=== PATIENT | male | born 1945 | race Caucasian/White ===

== ENCOUNTER 2016-09-06 22:03 | Inpatient (IN) | payer OTHER ==
[~2016-09-06] VITALS: Ht 190.5 cm; Wt 94.8 kg
[2016-09-06 22:03] VITALS: BP 202/123; PULSE 117; RESP 20; TEMP 98.1; O2SAT 95
[~2016-09-06 22:03] MED LIST: ALBU8.5H8 INH; ASA81 PO; GLU500 PO; INSU100V11 SQ; LEVO500T20 PO; LISI-600 PO; LOVI60 SQ; METO25TA6 PO; MULT PO; OMEP20TA20 PO; SIMV40TA2 PO; VITD2000 PO
--- NOTE | 2016-09-06 22:03 | NUR ---
Patient to ER bed 4 to gown for evaluation. Side rails up. Report given to Eladio LEWIS.
--- NOTE | 2016-09-06 22:10 | NUR ---
Pt brought to ED by with c/o chest tightness and SOB x2 hours, stated she discovered pt turning iverson and have increased work of breathing. Pt appeared calm at the ED and tachynpic. Pt A&Ox4, denies N/V/D, no sign of injury. Pt stated he does not have real chest pain, just a tightness sensation in chest that causes SOB. WIll continue to monitor
[2016-09-06] MEDS ORDERED: ASPIRIN 325 MG TABLET PO ONE (22:15)
[2016-09-06] MEDS ORDERED: LABETALOL 100 MG/ 20ML VIAL IVP ONE (22:15)
--- NOTE | 2016-09-06 22:20 | NUR ---
MD Xiao at bedside examining pt
[2016-09-06 22:26] LABS: BASOPHILS % (AUTO) 0.4 % (0.0-2.0); EOSINOPHILS # (AUTO) 0.4 K/uL (0.0-0.4); EOSINOPHILS % (AUTO) 3.7 % (0.0-4.0); HEMATOCRIT 42.4 % (36-54); HEMOGLOBIN 14.4 g/dL (14.0-18.0); MEAN CORPUSCULAR HEMOGLOBIN 33 pg (27-31); MEAN CORPUSCULAR HGB CONC 34 % (32-36); MEAN CORPUSCULAR VOLUME 96 fL (79.0-98.0); MONOCYTES # (AUTO) 0.9 K/uL (0.0-1.0); MONOCYTES % (AUTO) 8.5 % (1.7-9.3); NEUTROPHILS # (AUTO) 6.1 K/uL (1.8-7.7); NEUTROPHILS % (AUTO) 58.4 % (40.0-70.0); PLATELET COUNT (AUTO) 240 K/uL (130-430); RED BLOOD CELL COUNT(AUTO) 4.42 MIL/uL (4.2-6.2); RED CELL DISTRIBUTION WIDTH 13.1 % (9.0-15.0); WHITE BLOOD COUNT (AUTO) 10.4 K/uL (4.8-10.8)
[2016-09-06 22:42] LABS: INR 0.9 (0.80-1.20); PROTHROMBIN TIME 10.3 SECS (9.5-12.5)
[2016-09-06 22:43] LABS: ANION GAP 5 (5-15); CALCIUM 9.5 mg/dL (8.4-11.0); CHLORIDE 99 mmol/L (98-107); CREATININE 1.07 mg/dL (0.55-1.30); GLUCOSE 156 mg/dL (70-99); POTASSIUM 3.1 mmol/L (3.5-5.1); SODIUM SERUM 136 mmol/L (136-145); UREA NITROGEN, BLOOD 24 mg/dL (8-21)
--- NOTE | 2016-09-06 22:46 | NUR ---
Pt stated he feels better and breathing easier now
[2016-09-06 22:48] LABS: ALANINE AMINOTRANSFERASE 33 U/L (12-78); ASPARTATE AMINOTRANSFERASE 20 U/L (10-37); TOTAL BILIRUBIN 0.5 mg/dL (0.0-1.0); TOTAL PROTEIN, SERUM 8.1 g/dL (6.4-8.3)
[2016-09-06] MEDS ORDERED: POTASSIUM CHLORIDE 20 MEQ TAB.PRT.SR PO ONE (23:00)
--- NOTE | 2016-09-06 23:09 | NUR ---
BP 135/75, HR 94, O2 95% on 2L NS
[2016-09-06] MEDS ORDERED: ENOXAPARIN SODIUM 80 MG/0.8 ML SYRINGE SUBCUT ONE (23:15)
[2016-09-06] MEDS ORDERED: INSU100V9 SUBCUT (23:34)
[2016-09-06] MEDS ORDERED: INSU10VI4 SUBCUT (23:34)
--- NOTE | 2016-09-06 23:36 | NUR ---
Medication reconciliation completed with information provided by FAMILY. Any prior medication reconciliation on file was reviewed and corrected.
[2016-09-07] MEDS ORDERED: cloNIDine HCL 0.1 MG TABLET PO PRN (00:30)
--- NOTE | 2016-09-07 00:45 | NUR ---
Patient will be admitted to care of . Admitted to telemetry unit. Will go to room 101B. Belongings list completed. Summary report printed. Report given to [place] [facility] medic to telemetry via ACLS protocol. 2 Licensed nurse present. IV present no signs or symptoms of infiltration.
--- NOTE | 2016-09-07 00:46 | NUR ---
ADMISSION NOTE Received patient from ER via [facility], received report from CONGRESSIONAL REPRESENTATIVE. Patient admitted with diagnosis of Chest Pain. Patient oriented to hospital routine, call light, toileting and safety-patient verbalized understanding.
[2016-09-07 00:50] VITALS: BP 141/80; PULSE 79; RESP 18; TEMP 97.9; O2SAT 96
[2016-09-07] MEDS ORDERED: FLU VACC QS 2016-17(36MOS+)/PF 0.5 ML/SYR SYRINGE I.M. PRN (01:15)
--- NOTE | 2016-09-07 02:46 | NUR ---
ROUNDS PT IS AWAKE ASKED FOR WATER.NO C/O PAIN AND NO SOB NOTED.CALL LIGHT WITHIN REACH,WILL CONT TO MONITOR.
--- NOTE | 2016-09-07 03:37 | NUR ---
CARDIO CONSULT: DR MUNGUIA (DR MARTINEZ O/C) Consult was called, rashad Lima
[2016-09-07 03:59] VITALS: BP 148/78; PULSE 81; RESP 18; TEMP 98; O2SAT 95
--- NOTE | 2016-09-07 04:46 | NUR ---
ROUNDS PT IS SLEEPING COMFORTABLY @ THIS TIME.NO C/O PAIN AND NO RESPI DISTRESS NOTED.CALL LIGHT WITHIN REACH,WILL CONT TO MONITOR.
--- NOTE | 2016-09-07 06:45 | NUR ---
FINAL NOTES PT IS SLEEPING @ THIS TIME.NO S/S OF PAIN AND NO DISTRESS NOTED.V/S ARE WNL.ALL NEEDS MET AND ANTICIPATED BY NOC NURSES.CALL LIGHT WITHIN REACH,WILL ENDORSE.
--- NOTE | 2016-09-07 07:50 | NUR ---
AM ROUNDS PT A/O X4, DENIES CHEST PAIN OR SOB AT THIS TIME...HL TO RAC FLUSHES WELL...PT AMBULATES WITH STEADY GAIT..AWAITING ECHOCARDIOGRAM LATER THIS MORNING.. AT BEDSIDE...WILL CONT TO MONITOR
[2016-09-07] MEDS ORDERED: LISINOPRIL 20 MG TABLET PO SCH (09:00)
[2016-09-07] MEDS ORDERED: ENOXAPARIN SODIUM 40 MG/0.4 ML SYRINGE SUBCUT SCH (09:00)
[2016-09-07] MEDS ORDERED: ASPIRIN 325 MG TABLET (ECOTRIN) PO SCH (09:00)
[2016-09-07] MEDS ORDERED: METOPROLOL TARTRATE 25 MG TABLET PO SCH ×2 (09:00→21:00)
--- NOTE | 2016-09-07 11:00 | NUR ---
ROUNDS PT STABLE..NO CHANGES..WILL CONT MONITOR
[2016-09-07] MEDS ORDERED: *LOVENOX 1MG/KG Q12H/PHARMACY XX ONE (11:30)
[2016-09-07 12:00] VITALS: BP 152/78; PULSE 77; RESP 21; TEMP 97.8; O2SAT 95
[2016-09-07] MEDS: INSULIN REGULAR, HUMAN 100 UNITS/ML, 10 ML VIAL (novoLIN R) SUBCUT PRN ×3 (12:19→21:50)
--- NOTE | 2016-09-07 14:00 | NUR ---
ROUNDS PT STABLE...NO CHANGES...WILL CONT TO ANDREA
[2016-09-07 15:20] VITALS: BP 146/80; PULSE 74; RESP 19; TEMP 99; O2SAT 96
--- NOTE | 2016-09-07 18:00 | NUR ---
TRANSFER INFORMATION [facility] FOR HCP IS MAKING ARRANGEMENTS FOR ANGIOGRAM AND TRANSFER TO [facility]. [phone]..PHONE [phone]..FAX PT TO BE TRANSFERRED VIA ACLS.. CALL REPORT TO [facility] @ [phone] AFTER 0630 (PER AUTUMN)
--- NOTE | 2016-09-07 18:15 | NUR ---
ROUNDS PT INFORMED OF TRANSFER INFORMATION...PT STABLE...WILL CONT TO MONITOR
[2016-09-07 20:00] VITALS: BP_SYST 162; BP_SYST 163; BP_DIAS 109; BP_DIAS 111; PULSE 141; RESP 20; TEMP 99; O2SAT 96
--- NOTE | 2016-09-07 20:10 | NUR ---
HR elevated Patient heart rate 141, B/P 162/109 right arm, B/P 163/111 left arm. patient denies of any chest pain, no acute distress noted. Schedule Lopressor given. will continue to monitor patient. Charge nurse made aware.
[2016-09-07] MEDS ORDERED: ATORVASTATIN 20 MG TABLET PO ONE (21:00)
[2016-09-07] MEDS ORDERED: ENOXAPARIN SODIUM 100 MG/ML SYRINGE SUBCUT SCH (21:00)
[2016-09-07] MEDS ORDERED: SIMVASTATIN 40 MG TABLET PO SCH (21:00)
[2016-09-07 21:45] VITALS: BP 150/90; PULSE 87
--- NOTE | 2016-09-07 21:45 | NUR ---
Re-checked Re-checked patient Heart rate 87, B/P 150/90. patient lying in bed resting and watching TV, denies of any chest pain, no acute distress noted. Instructed patient to call nurse when getting out of bed, call light within reach. Charge nurse made aware.
[2016-09-07] MEDS ORDERED: D5/0.45 NS 1,000 ML IV SCH (23:30)
[2016-09-08 00:11] VITALS: BP 158/96; PULSE 78; RESP 17; TEMP 96.5; O2SAT 94
--- NOTE | 2016-09-08 00:12 | NUR ---
B/p 158/96 Patient B/P 158/96, clonidine given. patient denies of any chest pain, no SOB. will continue to monitor.
--- NOTE | 2016-09-08 02:03 | NUR ---
PATIENT RESTING: Patient resting quietly. No acute distress noted. call light within reach.
[2016-09-08 03:52] VITALS: BP 141/96; PULSE 133; RESP 18; TEMP 97; O2SAT 96
--- NOTE | 2016-09-08 04:07 | NUR ---
Heart rate elevated Patient heart rate 133, sinus tachy on the tele monitor. patient got out of the bed to the bathroom. denies of any chest pain, no acute distress noted. charge nurse made aware. will monitor.
--- NOTE | 2016-09-08 04:33 | NUR ---
Heart rate [address] Acevedo regarding patient heart rate of 137 to 140 sustaining, sinus tachy on tele monitor. no order received. patient's denies of any chest pain at this time, no acute distress noted. Charge nurse made aware. will continue to monitor patient.
[2016-09-08 04:57] VITALS: BP 144/96; PULSE 133; RESP 18; TEMP 97; O2SAT 96
--- NOTE | 2016-09-08 05:15 | NUR ---
IV PLACEMENT: # 20 gauge angiocath placed to left hand. Use of asceptic technique. Opsite placed over site. Blood return noted. Flushed with 10 cc of normal saline. No evidence of infiltration noted. Patient tolerated well.
--- NOTE | 2016-09-08 05:58 | NUR ---
Notes Per community relations rep Leonor that mine car dispatcher (Melisa) called here that there picking up patient at around 0700. charge nurse was aware. Informed patient and Jelena at the bedside that ambulance is gonna be here at 0700.
--- NOTE | 2016-09-08 06:10 | NUR ---
Heart rate Patient resting heart rate 87, denies of any pain, no acute distress noted. at the bedside.
[2016-09-08] MEDS: INSULIN REGULAR, HUMAN 100 UNITS/ML, 10 ML VIAL (novoLIN R) SUBCUT PRN (06:41)
--- NOTE | 2016-09-08 07:01 | NUR ---
Report Report given to Johanny LEWIS [facility]
--- NOTE | 2016-09-08 07:30 | NUR ---
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
--- NOTE | 2016-09-08 07:30 | NUR ---
Closing notes Report given to Nate LEWIS. Morning Charge nurse made aware that ambulance not yet here.
--- NOTE | 2016-09-08 07:45 | NUR ---
HANDOFF REPORT TO AMBULANCE CREW AND PATIENT TRANSFER TO [facility]. CALL TO ROMEO TO NOTIFY OF PATIENT TRANSFER. VERBALIZES UNDERSTANDING OF ABOVE.
[2016-09-08] MEDS ORDERED: ATORVASTATIN 20 MG TABLET PO SCH (09:00)
[2016-09-08] MEDS ORDERED: ASPIRIN 81 MG TABLET(ECOTRIN) PO SCH (09:00)
== END 2016-09-08 07:45 | disposition short-term general hospital (02) | DRG 311 ==
LOC: SED 22:03 → STU 09-07 00:18
DX: I24.9 Acute ischemic heart disease, unspecified (principal); I10 Essential (primary) hypertension; E11.9 Type 2 diabetes mellitus without complications; E78.00 Pure hypercholesterolemia, unspecified; I48.0 Paroxysmal atrial fibrillation; Z79.82 Long term (current) use of aspirin; Z79.899 Other long term (current) drug therapy; Z85.72 Personal history of non-Hodgkin lymphomas
CPT/HCPCS: 36415; 71010; 80053; 82962; 83880; 84484; 85025; 85379; 85610-TC; 85730-TC; 93306; 96372; 96374; 99285; J1650; J1815; J3490; Q2037